=== PATIENT | female | born 1960 | race Caucasian/White ===

== ENCOUNTER → 2016-05-07 | Outpatient (CLI) | payer MEDICARE ==
[2016-05-07 12:04] LABS: HEMOGLOBIN 12.4 gm/dL (12.0-16.0); MEAN CELL VOLUME 85.5 FL (83-96); MEAN CORPUSCULAR HEMOGLOBIN 28.6 PG (28-34); MEAN CORPUSCULAR HGB CONC 33.5 g/dL (30-36); MEAN PLATELET VOLUME 8.3 FL (6.5-11.5); RED BLOOD COUNT 4.33 X10e (3.90-5.30); RED CELL DISTRIBUTION WIDTH 14.9 % (11.0-15.5); WHITE BLOOD COUNT 9.3 X10e3 (4.0-10.5)
== END | disposition home or self-care (01) ==
LOC: CAMB 11:09
PROVIDERS: Orthopaedic Surgery
DX: Z01.812 Encounter for preprocedural laboratory examination (principal); S86.111A Strain of other muscle(s) and tendon(s) of posterior muscle group at lower leg level, right leg, initial encounter
CPT/HCPCS: 85027